=== PATIENT | female | born 1975 | race Caucasian/White ===

== ENCOUNTER 2016-12-29 15:10 | Emergency (ER) | payer BC ==
[2016-12-29 16:25] VITALS: BP 145/95
--- NOTE | 2016-12-29 17:23 | UC ---
Throat Pain/Nasal [place] HPI - HPI Summary HPI Summary: ONE WEEK OF SINUS PRESSURE COUGH, MILD SORE THROAT. FACIAL PRESSURE IS BECOMING MORE INTENSE. NO FEVER. - History of Current Complaint Chief Complaint: UCRespiratory Stated Complaint: ST,CONGEST,COUGH Time Seen by Provider: 12/29/16 16:49 Hx Obtained From: Patient Hx Last Menstrual Period: 12/20/16 Onset/Duration: Gradual Onset, Lasting Weeks, Still Present Severity: Moderate Cough: None Associated Signs & Symptoms: Positive: Sinus Discomfort, Nasal Discharge - Allergies/Home Medications Allergies/Adverse Reactions: Allergies Allergy/AdvReac Type Severity Reaction Status Date / Time NSAIDs Allergy Hives/Diff. Verified 12/29/16 16:25 Breathing/I tching PMH/Surg Hx/FS Hx/Imm Hx Previously Healthy: Yes - Surgical History Surgical History: None - Family History Known Family History: Negative: Respiratory Disease - Social History Occupation: Employed Full-time Lives: With Family Alcohol Use: Daily Alcohol Amount: with meal Substance Use Type: None Smoking Status (MU): Never Smoked Tobacco Review of Systems Constitutional: Negative Skin: Negative Eyes: Negative ENT: Sore Throat, Nasal Discharge Respiratory: Cough Cardiovascular: Negative Gastrointestinal: Negative Genitourinary: Negative Motor: Negative Neurovascular: Negative Musculoskeletal: Negative Neurological: Negative Psychological: Negative All Other Systems Reviewed And Are Negative: Yes Physical Exam Triage Information Reviewed: Yes Appearance: Well-Appearing, No Pain Distress, Well-Nourished Vital Signs: Initial Vital Signs Temp 98.6 F 12/29/16 16:21 Pulse 75 12/29/16 16:21 Resp 20 12/29/16 16:21 BP 145/95 12/29/16 16:21 Pulse Ox 100 12/29/16 16:21 Vital Signs Reviewed: Yes Eye Exam: Normal Eyes: Positive: Conjunctiva Clear ENT: Positive: Hearing grossly normal, Pharynx normal, TM bulging, TM dull Dental Exam: Normal Neck exam: Normal Neck: Positive: Supple, Nontender, No Lymphadenopathy Respiratory Exam: Normal Respiratory: Positive: Chest non-tender, Lungs clear, Normal breath sounds, No respiratory distress, No accessory muscle use Cardiovascular Exam: Normal Cardiovascular: Positive: RRR, No Murmur, Pulses Normal Abdominal Exam: Normal Musculoskeletal Exam: Normal Musculoskeletal: Positive: Strength Intact, ROM Intact Neurological Exam: Normal Psychological Exam: Normal Skin Exam: Normal Throat Pain/Nasal Course/Dx - Differential Dx/Diagnosis Differential Diagnosis/HQI/PQRI: Influenza, Laryngitis, Pharyngitis, Sinusitis, Tonsillitis, URI Provider Diagnoses: SINUSITIS Discharge - Discharge Plan Condition: Stable Disposition: HOME Prescriptions: Amoxicillin/Clavulanate TAB* [Augmentin TAB 875*] 875 mg PO BID #20 tab Benzonatate CAP* [Tessalon CAP*] 100 mg PO TID PRN #15 cap PRN Reason: Cough Patient Education Materials: Sinusitis (ED) Ref[facility]: [facility] [Outside] No Primary Care Phys,NOPCP [Primary Care Provider] -
== END 2016-12-29 17:20 | disposition home or self-care (01) ==
LOC: UCEAST 15:10
DX: J32.9 Chronic sinusitis, unspecified (principal); R03.0 Elevated blood-pressure reading, without diagnosis of hypertension; Z88.6 Allergy status to analgesic agent
CPT/HCPCS: 99201; G0463